=== PATIENT | female | born 1955 | race Caucasian/White ===

== ENCOUNTER 2016-12-20 02:16 | Emergency (ER) | payer MEDICAID ==
[2016-12-20] MEDS ORDERED: Albuterol/Ipratropium Neb 3 ML AERS HHN ONE ×2 (02:42→02:50)
[2016-12-20] MEDS ORDERED: Albuterol Nebulizer 2.5mg/3mL HHN ONE (02:45)
[2016-12-20] MEDS ORDERED: Ipratropium Neb 0.5 mg/2.5 mL UD HHN ONE (02:46)
--- NOTE | 2016-12-20 02:49 | ED Physician Chart ---
Chief Complaint/HPI - Patient Information Date Seen:: 12/20/16 Time Seen:: 02:35 Chief Complaint:: chest pain History of Present Illness:: At about 2300 last night this 61-year-old female developed sharp right superior chest pain radiating to the right upper back. Pain is increased by deep breathing. She also complains of shortness of breath. Allergies:: Allergies Allergy/AdvReac Type Severity Reaction Status Date / Time No Known Allergies Allergy Verified 12/20/16 02:41 Historian:: Patient Review of Systems - Review of Systems General/Constitutional: No fever, No chills Skin: No skin lesions Head: No headache Eyes: No loss of vision ENT: No earache Neck: No neck pain Cardio Vascular: Chest pain Pulmonary: SOB GI: No nausea, No vomiting G/U: No dysuria Musculoskeletal: No bone or joint pain Endocrine: No polyuria Psychiatric: Prior psych history, Anxiety Hematopoietic: No bruising Allergic/Immuno: No urticaria Neurological: Syncope, No focal symptoms Past Medical History - Past Medical History Past Medical History: Asthma/COPD Family History: None Social History: Non Smoker, No Alcohol Surgical History: other (ovarian cyst) Psychiatricy History: Other (anxiety) Medication: Reviewed Family Medical History - Family Member Mother History Unknown: Yes Physical Exam - Physical Examination General/Constitutional: Well-developed, well-nourished, Alert Other Gen/Cons comments:: Mild distress Head: Atraumatic Eyes: Lids, conjuctiva normal, PERRL Skin: Nl inspection, No rash, No skin lesions, No ecchymosis ENMT: External ears, nose nl, TM canals nl, Nasal exam nl, Lips, teeth, gums nl Neck: No nuchal rigidity Respiratory: Nl effort/Exclusion Other Respiratory comments:: Decreased breath sounds both apices in both mid lung vasquez; tenderness right superior chest wall and right superior back Cardio Vascular: RRR, No murmur, gallop, rubs, NL S1 S2 GI: No tenderness/rebounding/guarding, No organomegaly : No CVA tenderness Extremities: No tenderness or effusion Neuro/Psych: Alert/oriented, No focal deficits Misc: Normal back Labs/Radiology/EKG Results - EKG Interpretations Rate & Rhythm: normal sinus rhythm rate 61 [place]: normal axis Comments:: Normal EKG Assessment - Assessment General Assessment: at 0640 patient was resting comfortably. No rash noted. Will ask Dr. Simon to check the chest x-ray before discharge. ED Septic Shock - . Is Septic Shock (SBP<90, OR Lactate>4 mmol\L) present?: No Reassessment (Disposition) - Reassessment Reassessment Condition:: Improved - Diagnosis Diagnosis:: atypical chest pain. - Aftercare/Follow up Instructions Aftercare/Follow-Up Instructions:: Refer to Discharge Instructions Medication Prescribed:: albuterol MDI Sig 2 puffs Q 4 hr PRN - Patient Disposition Discharge/Transfer:: Home Condition at Disposition:: Stable, Improved
[2016-12-20] MEDS ORDERED: HYDROmorphone 1 mg/mL 1mL Syr IVP STA (08:09)
[2016-12-20] MEDS ORDERED: Aspirin 81mg Chewable Tab PO STA (08:13)
[2016-12-20] MEDS ORDERED: Aspirin 81mg Chewable Tab ONE (08:28)
[2016-12-20] MEDS ORDERED: HYDROmorphone 1 mg/mL 1mL Syr ONE (08:30)
--- NOTE | 2016-12-20 08:53 | Diagnostic Imaging Report ---
CHEST X-RAY: AP view INDICATION: pain COMPARISON: None FINDINGS: Increased interstitial lung markings are noted. No focal consolidation or pleural effusions. Mild cardiomegaly is noted. Degenerative changes of spine are noted. IMPRESSION: Increased interstitial lung markings which may be due to chronic changes. Note that a mild degree of congestion cannot be completely excluded. Please correlate clinically. Mild cardiomegaly.
[2016-12-20 08:57] LABS: % BASOPHILS 0.7 % (0.0-2.0); % EOSINOPHILS 1.3 % (0.0-5.0); % MONOCYTES 4.7 % (2.0-10.0); % NEUTROPHILS 79.3 % (40.0-80.0); HEMATOCRIT 35.7 % (35.0-45.0); HEMOGLOBIN 12.3 gm/dL (11.7-15.5); MEAN CELL VOLUME 87.2 fl (81-100); MEAN CORPUSCULAR HGB CONC 34.4 pg (28.0-36.0); MEAN PLATELET VOLUME 9.8 fl; NEUTROPHILE ABSOLUTE 5.8 Th/cmm (1.8-8.0); PLATELET COUNT 111 Th/cmm (150-400); RED BLOOD COUNT 4.09 Mil/cmm (3.80-5.10); RED CELL DISTRIBUTION WIDTH 13.5 % (11.5-20.0); WHITE BLOOD COUNT 7.3 Th/cmm (4.8-10.8)
[2016-12-20 09:06] LABS: INR 0.98 (0.5-1.4); PROTHROMBIN TIME (TEST) 10.2 SECONDS (9.5-11.5)
[2016-12-20 09:09] LABS: ALB/GLOB RATIO 1.2 (1.0-1.8); ALKALINE PHOSPHATASE 94 U/L (34-104); ANION GAP 5.9 (7.0-16.0); BILIRUBIN,TOTAL 0.5 mg/dL (0.3-1.0); BUN - UREA NITROGEN 18 mg/dL (7-25); CALCIUM SERUM 8.9 mg/dL (8.6-10.3); CARBON DIOXIDE 25.3 mEq/L (21.0-31.0); CHLORIDE 111 mEq/L (98-107); CREATININE - SERUM 0.5 mg/dL (0.6-1.2); GLUCOSE 135 mg/dL (70-105); POTASSIUM SERUM 4.2 mEq/L (3.5-5.1); SGOT 29 U/L (13-39); SGPT/ALT 23 U/L (7-52); SODIUM SERUM 138 mEq/L (136-145)
[2016-12-20 09:10] LABS: CHOLESTEROL 167 mg/dL (<200); TRIGLYCERIDES 95 mg/dL (<150)
--- NOTE | 2016-12-20 09:38 | Diagnostic Imaging Report ---
Cervical spine 4 views Indication: pain Comparison: none Findings: Exam is limited due to body habitus. No evidence of an acute compression fracture or subluxation. Moderate generalized degenerative changes are noted. No prevertebral soft tissue swelling. The atlantodental articulation is preserved. Impression: Moderate generalized degenerative changes. No evidence of an acute fracture or subluxation. If indicated a follow-up CT examination may be obtained for further assessment. In the setting of trauma, if clinical symptoms persist and there is continued concern for an occult fracture, follow up exams in 5-7 days is suggested.
[2016-12-20] MEDS ORDERED: Potassium Chloride 20 mEq ER Tab PO ONE (10:28)
[2016-12-20] MEDS ORDERED: Potassium Chloride Elixir 20 mEq /15 mL UDC ONE (10:46)
[2016-12-20 11:27] VITALS: BP 119/78
[2016-12-20] MEDS ORDERED: Morphine Sulfate 2 mg/mL 1mL Syr IV PRN (13:34)
[2016-12-20] MEDS ORDERED: VTE Chemical Prophylaxis Screen/Admission MC PRN (15:23)
--- NOTE | 2016-12-20 20:27 | Admit Criteria Form ---
Admit Criteria Forms - Admit Criteria Diagnosis: TELEMETRY CARE Telemetry Admission Guidelines (Place 'X' for any and all applicable criteria): Admission to telemetry [A] may be indicated for ANY ONE of the following(1)(2)(3 )(4)(5): [X]I. Cardiac disease, including ANY ONE of the following (9)(10)(11)(12)(13 ): [ ]a) Postacute MD [ ]b) Low-risk patients with ST-segment elevation MD who have undergone successful percutaneous coronary intervention [X]c) Unstable angina [ ]d) Suspected MD (until it is ruled out) [ ]e) Post cardiac surgery (first 48 to 72 hours unless complications occur) [ ]f) Acute arrhythmias (including significant tachycardia or bradycardia) [B] [ ]g) Firing of an implantable cardioverter defibrillator [C] [ ]h) Suspected pacemaker or implantable cardioverter defibrillator malfunction (10) [ ]i) New administration or adjustment of an antiarrhythmic drug [D ] [ ]j) Child admitted for acute congestive heart failure [ ]j) Long QT syndrome [ ]k) Advanced heart block (eg, second-degree Mobitz type II, third- degree heart block) [ ]l) Acute myocarditis or pericarditis [ ]m) Short-term (ambulatory or inpatient) monitoring after a cardiac procedure as indicated by ANY ONE of the following [E]: [ ]i) Electrophysiologic studies [ ]ii) Percutaneous coronary intervention with stent placement [ ]iii) Pacemaker placement with cardiac conduction defect [ ]iv) Implantable cardiac defibrillator placement [ ]II. Drug overdose or poisoning with substance that causes arrhythmias or QT prolongation (eg, phenothiazines, sympathomimetic agents, cyclic antidepressants, digitalis, antiarrhythmic drugs)(15) [ ]III. Short-term (ambulatory or inpatient) monitoring after therapeutic or diagnostic procedure requiring conscious sedation or anesthesia (eg, endoscopy, elective cardioversion) [ ]IV. Acute cerebrovascular even[F](18) [ ]V. Massive blood transfusion (eg, at least 10 units of packed red blood cells in 24 hours) [ ]. Variceal bleeding after endoscopy, sclerotherapy, or IV vasopressin [ ]VII. Uncorrected electrolyte abnormalities associated with an increased risk of dangerous arrhythmia [G]; examples include [ ]a) Hyperkalemia with attributable ECG changes [ ]b) Potassium greater than 6.5 mmol/L (mEq/L) in a patient without history of chronic renal disease [ ]c) Prolonged QT attributed to hypokalemia, hypomagnesemia, or hypocalcemia [ ]VIII.Unexplained syncope or other neurologic event suspected of being due to arrhythmia due to a finding that increases risk; examples include(19)(20)(21): [ ]a) High-risk ECG findings (eg, bifascicular block, bradycardia, abnormal QT interval, ventricular pre- excitation) [ ]b) History of previous syncope due to arrhythmia [ ]c) Abnormal ventricular function (eg, reduced ejection fraction ) [ ]d) Exertional or supine syncope [ ]e) Concerning syncope characteristics (eg, sudden loss of consciousness without prodrome) [ ]f) Family history of sudden [ ]g) Use of arrhythmogenic medication [ ]h) Suspected cardiac ischemia [ ]i) Known channelopathy (eg, long QT syndrome, Brugada syndrome, or catecholaminergic paroxysmal ventricular tachycardia) [ ]j) Known structural heart disease (eg, hypertrophic cardiomyopathy , severe valvular disease) [ ]k) Palpitations preceding syncope The original [employer] content created by [employer] has been revised. The portions of the content which have been revised are identified through the use of italic text or in bold, and [employer] [facility] has neither reviewed nor approved the modified material. All other unmodified content is copyright [employer]. Please see references footnoted in the original [employer] edition 2016 Admit Criteria Met?: Yes
== END 2016-12-20 11:17 | disposition short-term general hospital (02) ==
LOC: ER 02:16 → TELE 10:56 → UNDOADMIN 10:56 → UNDODISIN 21:50
DX: I20.0 Unstable angina (principal); I10 Essential (primary) hypertension; D64.9 Anemia, unspecified; J44.9 Chronic obstructive pulmonary disease, unspecified; F41.9 Anxiety disorder, unspecified
CPT/HCPCS: 36415-UA; 71010-TC; 72040-TC; 80053-TC; 80061-TC; 84443-TC; 84484-TC; 85025-TC; 85610-TC; 86592-TC; 86593-TC; 86780-90; 90779; 93005; 94640; 96374; 96375; J1170; J1885; J2270; J2405; J7613; Z7610

== ENCOUNTER 2016-12-27 13:27 | Emergency (ER) | payer MEDICAID ==
[2016-12-27 13:37] VITALS: BP 132/74
[2016-12-27 13:59] LABS: URINE BILIRUBIN NEGATIVE (NEGATIVE); URINE BLOOD MODERATE (NEGATIVE); URINE COLOR YELLOW; URINE GLUCOSE (UA) NEGATIVE (NEGATIVE); URINE KETONE NEGATIVE (NEGATIVE); URINE PH 5.5; URINE PROTEIN NEGATIVE (NEGATIVE); URINE UROBILINOGEN 0.2 E.U./dL (0.2 - 1.0)
[2016-12-27 14:02] LABS: URINE BACTERIA FEW /hpf (NONE SEEN); URINE EPITHELIAL CELLS FEW /lpf (FEW); URINE WBC 0-2 /hpf (0-5)
[2016-12-27 14:10] LABS: % BASOPHILS 0.1 % (0.0-2.0); % EOSINOPHILS 1.9 % (0.0-5.0); % LYMPHOCYTES 19.6 % (20.0-50.0); % MONOCYTES 4.7 % (2.0-10.0); % NEUTROPHILS 73.7 % (40.0-80.0); HEMATOCRIT 38.4 % (35.0-45.0); HEMOGLOBIN 12.9 gm/dL (11.7-15.5); MEAN CELL VOLUME 88.1 fl (81-100); MEAN CORPUSCULAR HEMOGLOBIN 29.6 pg (27.0-31.0); MEAN CORPUSCULAR HGB CONC 33.6 pg (28.0-36.0); RED BLOOD COUNT 4.36 Mil/cmm (3.80-5.10); RED CELL DISTRIBUTION WIDTH 13.4 % (11.5-20.0); WHITE BLOOD COUNT 8.2 Th/cmm (4.8-10.8)
[2016-12-27 14:33] LABS: ALB/GLOB RATIO 1.2 (1.0-1.8); ALKALINE PHOSPHATASE 88 U/L (34-104); ANION GAP 10.8 (7.0-16.0); BILIRUBIN,TOTAL 0.4 mg/dL (0.3-1.0); BUN - UREA NITROGEN 26 mg/dL (7-25); BUN/CREATININE RATIO 37.1; CALCIUM SERUM 9.3 mg/dL (8.6-10.3); CARBON DIOXIDE 24.8 mEq/L (21.0-31.0); CHLORIDE 110 mEq/L (98-107); CREATININE - SERUM 0.7 mg/dL (0.6-1.2); GLUCOSE 124 mg/dL (70-105); POTASSIUM SERUM 3.6 mEq/L (3.5-5.1); SGOT 28 U/L (13-39); SGPT/ALT 25 U/L (7-52); SODIUM SERUM 142 mEq/L (136-145)
[2016-12-27 14:35] LABS: PLATELET COUNT 148 Th/cmm (150-400)
--- NOTE | 2016-12-27 16:21 | Diagnostic Imaging Report ---
Portable chest x-ray History: Shortness of breath Allowing for portable technique the heart size is normal. No focal pulmonary parenchymal processes. No hilar or mediastinal abnormalities. Impression: No acute abnormalities.
--- NOTE | 2016-12-27 16:31 | Diagnostic Imaging Report ---
Cervical spine (3 views) HISTORY: Pain Alignment is normal. Narrowing of the C56 disc space. Hypertrophic spur formation seen about the endplates at this level. The C7 Maldonado body is not well visualized. Prevertebral soft tissues appear normal. Atherosclerotic vascular calcination seen in the region of the carotid arteries. IMPRESSION: 1. Limited exam as the body of C7 is not well visualized 2. Degenerative changes particularly at C5-6 3. Atherosclerotic vascular changes
--- NOTE | 2016-12-28 10:27 | Diagnostic Imaging Report ---
Right shoulder (2 views) HISTORY: Pain No acute abnormalities. No fractures. No dislocation. No abnormal soft tissue calcifications. IMPRESSION: No acute abnormalities
--- NOTE | 2017-01-03 08:05 | ED Physician Chart ---
Chief Complaint/HPI - Patient Information Date Seen:: 12/27/16 Time Seen:: 14:20 Chief Complaint:: right shoulder pain History of Present Illness:: THIS IS A 61 YR OLD FEMALE WITH RIGHT SHOULDER PAIN FOR THREE DAYS WITH NO RECENT OR PAST SHOULDER TRAUMA, NO CHEST PAIN. SHE ADMITS THAT SHE HAS HAD CERVICAL SPINE IN THE PAST. SHE DENIES USING HER RIGHT UPPER EXTREMITY BEING USED REPEPTITIVE MOTION WHILE WORKING. SHE DENIES FEVER, COUGH AND SORE THROAT. SHE DENIES HAVING ANY OTHER WITH MEDICAL PROBLEMS. Allergies:: Allergies Allergy/AdvReac Type Severity Reaction Status Date / Time No Known Allergies Allergy Verified 12/20/16 02:41 Historian:: Patient Review:: Nurse's Note Reviewed Review of Systems - Review of Systems General/Constitutional: No fever, No chills, No weight loss, No weakness, No diaphoresis, No edema, No loss of appetite Skin: No skin lesions, No rash, No bruising Head: No headache, No light-headedness Eyes: No loss of vision, No pain, No diplopia ENT: No earache, No nasal drainage, No sore throat, No tinnitus Neck: No neck pain, No swelling, No thyromegaly, No stiffness, No mass noted Cardio Vascular: No chest pain, No palpitations, No PND, No orthopnea, No edema Pulmonary: No SOB, No cough, No sputum, No wheezing GI: No nausea, No vomiting, No diarrhea, No pain, No melena, No hematochezia, No constipation, No hematemesis G/U: No dysuria, No frequency, No hematuria Musculoskeletal: No bone or joint pain, No back pain, No muscle pain Endocrine: No polyuria, No polydipsia Psychiatric: No prior psych history, No depression, No anxiety, No suicidal ideation Hematopoietic: No bruising, No lymphadenopathy Allergic/Immuno: No urticaria, No angioedema Neurological: No syncope, No focal symptoms, No weakness, No paresthesia, No headache, No seizure, No dizziness, No confusion, No vertigo Past Medical History - Past Medical History Obtainable: Yes Past Medical History: HTN Family History: None Social History: Non Smoker, No Alcohol, No Drug Use, Employed Surgical History: None Psychiatricy History: None Medication: Reviewed Family Medical History - Family Member Mother History Unknown: Yes Ethnicity: Physical Exam - Physical Examination General/Constitutional: Awake, Well-developed, well-nourished, Alert, No distress, GCS 15, Non-toxic appearing, Ambulatory Head: Atraumatic Eyes: Lids, conjuctiva normal, PERRL, EOMI Skin: Nl inspection, No rash, No skin lesions, No ecchymosis, Well hydrated, No lymphadenopathy ENMT: External ears, nose nl, Nasal exam nl, Lips, teeth, gums nl Neck: Nontender, Full ROM w/o pain, No JVD, No nuchal rigidity, No bruit, No mass, No stridor Respiratory: Nl effort/Exclusion, Clear to Auscultation, No Wheeze/Rhonchi/Rales Cardio Vascular: RRR, No murmur, gallop, rubs, NL S1 S2 GI: No tenderness/rebounding/guarding, No organomegaly, No hernia, Normal BS's, Nondistended, No mass/bruits, No McBurney tenderness : No CVA tenderness Extremities: No tenderness or effusion (THE RIGHT SHOULDER IS TENDER ON ROM), Full ROM, normal strength in all extremities, No edema, Normal digits & nails Neuro/Psych: Alert/oriented, DTR's symmetric, Normal sensory exam, Normal motor strength, Judgement/insight normal, Mood normal, Normal gait, No focal deficits Misc: normal gait, Normal back, No paraspinal tenderness Labs/Radiology/EKG Results - Lab Results Results: Laboratory Tests 12/27/16 12/27/16 12/27/16 13:50 14:02 14:02 WBC 8.2 RBC 4.36 Hgb 12.9 Hct 38.4 MCV 88.1 MCH 29.6 MCHC Differential 33.6 RDW 13.4 Plt Count 148 L D MPV 9.0 Neutrophils % 73.7 Lymphocytes % 19.6 L Monocytes % 4.7 Eosinophils % 1.9 Basophils % 0.1 Sodium 142 Potassium 3.6 Chloride 110 H Carbon Dioxide 24.8 Anion Gap 10.8 BUN 26 H Creatinine 0.7 Est GFR ( Amer) > 60.0 Est GFR (Non-Af Amer) > 60.0 BUN/Creatinine Ratio 37.1 Glucose 124 H Calcium 9.3 Total Bilirubin 0.4 AST 28 ALT 25 Alkaline Phosphatase 88 Troponin I Total Protein 7.4 Albumin 4.1 Globulin 3.3 Albumin/Globulin Ratio 1.2 TSH Urine Source CLEAN C Urine Color YELLOW Urine Clarity CLEAR Urine pH 5.5 Ur Specific [place] 1.025 Urine Protein NEGATIVE Urine Glucose (UA) NEGATIVE Urine Ketones NEGATIVE Urine Blood MODERATE H Urine Nitrate NEGATIVE Urine Bilirubin NEGATIVE Urine Urobilinogen 0.2 Ur Leukocyte Esterase NEGATIVE Urine RBC 5-10 H Urine WBC 0-2 Ur Epithelial Cells FEW Urine Bacteria FEW 12/27/16 12/27/16 14:02 14:02 WBC RBC Hgb Hct MCV MCH MCHC Differential RDW Plt Count MPV Neutrophils % Lymphocytes % Monocytes % Eosinophils % Basophils % Sodium Potassium Chloride Carbon Dioxide Anion Gap BUN Creatinine Est GFR ( Amer) Est GFR (Non-Af Amer) BUN/Creatinine Ratio Glucose Calcium Total Bilirubin AST ALT Alkaline Phosphatase Troponin I 0.01 Total Protein Albumin Globulin Albumin/Globulin Ratio TSH 6.64 H Urine Source Urine Color Urine Clarity Urine pH Ur Specific [place] Urine Protein Urine Glucose (UA) Urine Ketones Urine Blood Urine Nitrate Urine Bilirubin Urine Urobilinogen Ur Leukocyte Esterase Urine RBC Urine WBC Ur Epithelial Cells Urine Bacteria - Radiology Results Results: CT SCAN OF THE C-SPINE = C5 AREA DISC DISEASE ED Septic Shock - . Is Septic Shock (SBP<90, OR Lactate>4 mmol\L) present?: No Reassessment (Disposition) - Reassessment Reassessment Condition:: Improved - Diagnosis Diagnosis:: CERVICAL DISC DISEASE - Aftercare/Follow up Instructions Aftercare/Follow-Up Instructions:: Counseled pt regarding lab results/diagnosis & need follow up, Refer to Discharge Instructions, Counseled pt & family regarding lab results/diagnosis & need follow up - Patient Disposition Discharge/Transfer:: Home Condition at Disposition:: Improved ED Discharge Plan - Patient Disposition Admit/Discharge/Transfer: PT DISCHARGED HOME Condition at Disposition: Improved Instructions: Hypothyroidism and , Cervical Radiculopathy, Easy-to- Read
== END 2016-12-27 16:10 | disposition home or self-care (01) ==
LOC: ER 13:27
DX: M50.921 Unspecified cervical disc disorder at C4-C5 level (principal); I10 Essential (primary) hypertension
CPT/HCPCS: 36415-UA; 71010-TC; 72040-TC; 73030-TC-RT; 80053-TC; 81001-TC; 84443-TC; 84484-TC; 85025-TC; 96374; J1885